=== PATIENT | female | born 1980 ===

== ENCOUNTER 2016-07-07 08:05 | Emergency (ER) | payer OTHER ==
[2016-07-07 08:18] VITALS: BP 145/79
--- NOTE | 2016-07-07 08:42 | UC ---
Respiratory Complaint HPI - HPI Summary HPI Summary: COUGH / CHEST CONGESTION X 4 DAYS + FEVER, CHILLS, + NASAL CONGESTION - History of Current Complaint Chief Complaint: UCGeneralIllness Stated Complaint: COUGH,SINUS Time Seen by Provider: 07/07/16 08:25 Hx Obtained From: Patient Hx Last Menstrual Period: 06/26/16 ?: No Onset/Duration: Gradual Onset, Lasting Days - 4, Still Present Timing: Constant Severity Initially: Moderate Severity Currently: Moderate Character: Cough: Nonproductive Aggravating Factors: Exertion, Deep Breaths Associated Signs And Symptoms: Positive: Fever, Chills, URI, Nasal Congestion. Negative: Dyspnea, Wheezing, Calf Swelling - Allergies/Home Medications Allergies/Adverse Reactions: Allergies Allergy/AdvReac Type Severity Reaction Status Date / Time Morphine Allergy Severe See Comment Verified 07/07/16 08:18 Codeine Allergy Intermediate Shortness Verified 07/07/16 08:18 of Breath Ibuprofen Allergy Intermediate Difficulty Verified 07/07/16 08:18 Breathing Meperidine [From Demerol HCl] Allergy Intermediate Itching Verified 07/07/16 08: 18 Azithromycin [From Zithromax] Allergy See Comment Verified 07/07/16 08:18 PMH/Surg Hx/FS Hx/Imm Hx Previously Healthy: Yes - Surgical History Surgical History: Yes Surgery Procedure, Year, and Place: tonsils, c-sections x 2; TUBAL LIGATION, RIGHT GREAT TOE AMPUTATION AND REPAIR - Family History Known Family History: Positive: None Negative: Diabetes Family History: no cardio vascular issues in family lineage - Social History Alcohol Use: Occasionally Substance Use Type: None Smoking Status (MU): Heavy Every Day Tobacco Smoker Type: Cigarettes Amount Used/How Often: 1/2 ppd Length of Time of Smoking/Using Tobacco: since age 19 Have You Smoked in the Last Year: Yes Review of Systems Constitutional: Fever, Chills Skin: Negative Eyes: Negative ENT: Nasal Discharge Respiratory: Cough Cardiovascular: Negative Gastrointestinal: Negative All Other Systems Reviewed And Are Negative: Yes Physical Exam Triage Information Reviewed: Yes Appearance: Well-Appearing, No Pain Distress, Well-Nourished Vital Signs: Initial Vital Signs Temp 99.4 F 07/07/16 08:14 Pulse 103 07/07/16 08:14 Resp 18 07/07/16 08:14 BP 145/79 07/07/16 08:14 Pulse Ox 99 07/07/16 08:14 Vital Signs Reviewed: Yes Eyes: Positive: Conjunctiva Clear ENT: Positive: Normal ENT inspection, Hearing grossly normal, Pharynx normal, Nasal congestion, Nasal drainage, TMs normal Neck: Positive: Supple, Nontender, No Lymphadenopathy Respiratory: Positive: Chest non-tender, Lungs clear, Normal breath sounds Cardiovascular: Positive: RRR, No Murmur, Pulses Normal Skin Exam: Normal UC Diagnostic Evaluation - Laboratory O2 Sat by Pulse Oximetry: 99 Respiratory Course/Dx - Differential Dx/Diagnosis Provider Diagnoses: URI Discharge - Discharge Plan Condition: Stable Disposition: HOME Patient Education Materials: Upper Respiratory Infection (ED) Referrals: Non Staff,Doctor [Primary Care Provider] - If Needed
== END 2016-07-07 08:50 | disposition home or self-care (01) ==
LOC: UCCORT 08:05
DX: J06.9 Acute upper respiratory infection, unspecified (principal); R03.0 Elevated blood-pressure reading, without diagnosis of hypertension; Z88.6 Allergy status to analgesic agent; Z88.1 Allergy status to other antibiotic agents; Z88.5 Allergy status to narcotic agent; Z89.411 Acquired absence of right great toe; F17.210 Nicotine dependence, cigarettes, uncomplicated
CPT/HCPCS: 99211; G0463

== ENCOUNTER → 2017-04-03 07:02 | Day surgery (SDC) | payer OTHER ==
--- NOTE | 2017-03-29 12:27 | HP ---
PREOPERATIVE HISTORY AND PHYSICAL: DATE OF ADMISSION: 04/03/[address] - [facility] PROVIDER: Migue Drummond MD * (DICTATED BY CLAUDIA YOUSIF) CHIEF COMPLAINT: Left ankle pain. HISTORY OF PRESENT ILLNESS: Carleen is a 36-year-old female who has been followed by Dr. Drummond for ongoing pain into her right ankle. The initial injury happened approximately a year ago when she rolled her ankle, climbing off a bus onto some concrete steps. She had an inversion type injury and was treated initially as a sprain. Her pain persisted in the lateral hindfoot with swelling that has not really remitted. She had a second opinion, who felt she had torn ligaments and discussed possible ligament repair. She has been followed by Dr. Drummond now for another opinion. She has pain in the distribution of the SPN nerve and underwent local anesthetic injection with good pain relief. She is now interested in surgical intervention for correction of the problem. PAST MEDICAL HISTORY: Seasonal allergies. PAST SURGICAL HISTORY: section x2, tubal ligation, tonsillectomy, and shoulder surgery. She reports no problems with general anesthesia. She did have significant nausea with spinal during section. CURRENT MEDICATIONS: 1. Flonase 50 mcg intranasal puff daily. 2. Zyrtec Allergy 10 mg p.o. every day. 3. Vitamin C supplement 500 mg p.o. every day. 4. Vitamin D supplement 1000 units p.o. every day. ALLERGIES: CODEINE, MORPHINE, DEMEROL, ZITHROMAX, IBUPROFEN, LATEX, ADHESIVE, and NUCYNTA. These mostly cause nausea. She does report anaphylaxis with NUCYNTA. FAMILY HISTORY: Positive for diabetes and cancer. SOCIAL HISTORY: She lives with her spouse. 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 She smokes half a pack of cigarettes per day or less for several years. She occasionally consumes alcohol. She exercises regularly. REVIEW OF SYSTEMS: A 14-point review of systems was discussed with the patient and all systems were negative except as discussed in the HPI. PHYSICAL EXAMINATION GENERAL: She is a well-developed, well-nourished female, in no acute distress at rest. She is alert and oriented x3 with appropriate mood and affect. VITAL SIGNS: The patient is 5 feet 4 inches, 210 pounds. Blood pressure is 132 /86, respirations 14, temperature 98.7. HEENT: Normocephalic, atraumatic. Hearing and vision are grossly intact. NECK: Trachea is midline. RESPIRATORY: Lungs clear to auscultation bilaterally. No wheezes, rales, or rhonchi. CARDIOVASCULAR: Regular rate and rhythm. No murmurs, rubs, or gallops. Normal S1, S2. ABDOMEN: Soft, nondistended, nontender. EXTREMITIES: Exam of the left lower extremity, skin is intact without abrasions or open wounds. There is some puffiness at the exit of the SPN nerve where she has positive stretch sign and positive Tinel's. There is no anterior or posterior instability of the ankle noted. Sensation to light touch is intact. She has a normal vascular exam. IMPRESSION: Left ankle superficial peroneal nerve neuritis. PLAN: Patient is to undergo left ankle SPN nerve decompression by Dr. Drummond on 04/03/17. The risks, benefits, and postoperative course were discussed with the patient and she would like to proceed. All of her questions were answered to her full satisfaction. She is understanding to call if she develops problems or concern. A prescription for Joffre was sent to her pharmacy for postoperative pain as she states that she has been able to tolerate this in the past. CLAUDIA YOUSIF [id number]/CPS #: [id number] MTDD
[~2017-04-03 07:02] MED LIST: Buffered Lidocaine 0.9% SYRIN* 5 ML/SYR SYRINGE INTRADERM ONE; Buffered Lidocaine 0.9% SYRIN* 5 ML/SYR SYRINGE ONE; Bupivacaine 0.5% SDV PF* 30 ML VIAL ONE; DiMENhydriNATE IV* 50 MG/ML VIAL IV PUSH PRN; Famotidine IV* 10 MG/ML 2 ML (20 mg) IV ONE; Famotidine IV* 10 MG/ML 2 ML (20 mg) ONE; HYDROmorphone INJ* 1 MG/ML CARPUJECT SYRINGE IV PRN; KETAMINE HCL* 50 MG/ML 10 ML VIAL ONE; Midazolam* 1 MG/ML 10 ML VIAL (10 MG) ONE; Ondansetron INJ* 2 MG/ML VIAL IV PRN; PROCHLORPERAZINE INJ 5 MG/ML 2 ML VIAL IV PRN; Scopolamine 1.5 mg* PATCH TRANSDERM PRN; Scopolamine PATCH Remove* 1 NOTE MISC PATCH OFF ONE; ceFAZolin 2 GM PREMIX (*) 2 GM/50 ML BAG IVPB ONE; fentaNYL* 50 MCG/ML 2 ML VIAL (100 MCG VIAL) IV PRN; fentaNYL* 50 MCG/ML 2 ML VIAL (100 MCG VIAL) ONE; oxyCODONE/Acetamin 5/325 MG* TAB ONE; oxyCODONE/Acetamin 5/325 MG* TAB PO PRN
[2017-04-03 11:47] VITALS: BP 132/71
--- NOTE | 2017-04-04 07:32 | OP ---
DATE OF OPERATION: 04/03/17 [facility] DATE OF : 82 ATTENDING SURGEON: Migue Drummond MD PATHOLOGY LABORATORY DIRECTOR: Tonya Up PA-C. ANESTHESIOLOGIST: Victorino Elder MD ANESTHESIA: MAC PRE-OP DIAGNOSIS: In situ neuroma, left superficial peroneal nerve. POST-OP DIAGNOSIS: In situ neuroma, left superficial peroneal nerve. OPERATIVE PROCEDURE: Decompression, left SP nerve. DESCRIPTION OF PROCEDURE: The patient was taken to the operating room where a 5 cm longitudinal incision was made a handbreadth above the malleolar tip and just anterior. In the soft tissues, we identified the SP nerve coursing through the crural fascia which was released approximately 6 to 7 cm proximally. Distally, we dissected around the nerve, freeing it up well down toward the lateral malleolus. We irrigated the wound thoroughly, closing the subcu with 2-0 Vicryl and a Monocryl for the skin, and a compression dressing plaster splint applied. [id number]/CPS #: [id number] [facility]
== END | disposition home or self-care (01) ==
LOC: OR 07:02
PROVIDERS: ATTEND Orthopaedic Surgery
DX: D36.13 Benign neoplasm of peripheral nerves and autonomic nervous system of lower limb, including hip (principal); J30.2 Other seasonal allergic rhinitis; F17.210 Nicotine dependence, cigarettes, uncomplicated; G57.82 Other specified mononeuropathies of left lower limb; Z88.5 Allergy status to narcotic agent; Z88.1 Allergy status to other antibiotic agents; Z88.6 Allergy status to analgesic agent
CPT/HCPCS: 81025; A9270-GY; J0690; J2250; J3010